=== PATIENT | female | born 1970 | race Two or more races ===

== ENCOUNTER → 2024-04-11 | Outpatient (CLI) | payer MEDICARE, MEDICAID, SELFPAY ==
--- NOTE | 2024-04-11 15:30 | XR_ITS ---
Examination: Thyroid sonography complete Technique: Grayscale sonographic images thyroid lobes, flow analysis Exam date and time: April 11, 2024 1534 hrs. Indications: Diagnosis Spencer's thyroiditis Findings: Right thyroid 4.7 cm no solid nodules Left thyroid 4.0 cm no solid nodules Heterogeneous echogenicity throughout the thyroid lobes Impression: Negative for thyroid nodules, consider correlation with oral I-123 thyroid uptake and scan
== END | disposition home or self-care (01) ==
LOC: CDIM 15:16
PROVIDERS: PCP Registered Nurse Community Health; Referring Provider Internal Medicine Endocrinology, Diabetes & Metabolism; Visit Provider Internal Medicine Endocrinology, Diabetes & Metabolism
DX: E07.9 Disorder of thyroid, unspecified (principal)
CPT/HCPCS: 76536

== ENCOUNTER → 2024-05-03 | Outpatient (CLI) | payer MEDICARE, MEDICAID, SELFPAY ==
--- NOTE | 2024-05-03 13:13 | XR_ITS ---
Examination: Upper GI series with KUB. Esophagram standard Fluoroscopy 22 spot fluoroscopic images esophagus stomach Upright PA chest single view Exam date and time: May 03, 2024 1320 hours INDICATIONS: Epigastric pain reflux 3 months FINDINGS: Sieve Maker AP supine abdomen single view, nonobstructive bowel gas pattern Upright PA chest single view normal heart size no pneumonia Patient swallowed thin barium with 22 spot fluoroscopic images of the esophagus and stomach obtained Prominent gastroesophageal reflux No stricture the gastroesophageal junction Significant mucosal thickening in the gastric antrum Duodenal bulb expands symmetrically duodenal sweep ligament of Treitz in jejunal loops unremarkable IMPRESSION: Prominent continuous gastroesophageal reflux Mucosal fold thickening the gastric antrum most consistent with antral gastritis, but clinical correlation advised
--- NOTE | 2024-05-03 14:11 | XR_ITS ---
Examination: CT abdomen with intravenous contrast CT pelvis with intravenous contrast 2-D coronal reconstructions 2-D sagittal reconstructions Date and time of exam:May 03, 2024 1519 hours Comparison April 01, 2022 INDICATIONS: Epigastric pain right lower abdominal pain pelvic pain beginning 5 months ago. CTDI: vol (mGy) 10.2 DLP: (mGycm) 584 Technique: Multiple axial sections of the abdomen and pelvis have been obtained. 64 slice high-resolution scanner used. 3 mm axial sections have been obtained, post intravenous injection 60 cc [id number] 2-D sagittal, coronal reconstructions obtained. Low dose protocols were performed. One or more of the following dose reduction techniques were used; automated exposure control, adjustment of the mA and/or KV according to patient size, use of iterative reconstruction technique. Findings: No focal liver or splenic lesions Absent gallbladder Common bile duct 8 mm No pancreatic or adrenal mass No renal or ureteral calculi Aorta normal size No bowel obstruction 6 mm fat-containing umbilical hernia Normal appendix Colonic diverticulosis, no diverticulitis Absent uterus Urinary bladder intact Moderate osteopenia IMPRESSION: Absent gallbladder No common bile duct stones noted No renal or ureteral calculi. Normal appendix Colonic diverticulosis, no diverticulitis
== END | disposition home or self-care (01) ==
PROVIDERS: PCP Registered Nurse Community Health; Referring Provider Registered Nurse Community Health; Visit Provider Registered Nurse Community Health
DX: K21.9 Gastro-esophageal reflux disease without esophagitis (principal); K31.89 Other diseases of stomach and duodenum; K57.30 Diverticulosis of large intestine without perforation or abscess without bleeding; Z90.49 Acquired absence of other specified parts of digestive tract
CPT/HCPCS: 74177; 74240; A4649; A4699; Q9967

== ENCOUNTER → 2024-07-11 | Outpatient (CLI) | payer MEDICARE, MEDICAID, SELFPAY ==
--- NOTE | 2024-07-11 11:15 | XR_ITS ---
Examination: Screening digital mammography, bilateral Computer aided detection 3-D breast Tomosynthesis, bilateral Date and time of exam: July 11, 2024 1135 hours Compared to mammograms dating to August 04, 2021 Indication: Screening Technique: Nonmagnified MLO, CC views of the breasts to been obtained, reconstructed from 3-D Tomosynthesis images. R2 computer aided detection program utilized for evaluation of suspicious masses and/or abnormal calcifications. 3-D Tomosynthesis images obtained. Findings: The breasts are heterogeneously dense, which may obscure small masses Benign calcifications No interval suspicious masses Impression: BI-RADS category II: Benign Findings. Recommend 1 year follow-up mammogram.
== END | disposition home or self-care (01) ==
LOC: CDIM 11:24
PROVIDERS: Referring Provider Registered Nurse Community Health; Visit Provider Registered Nurse Community Health
DX: Z12.31 Encounter for screening mammogram for malignant neoplasm of breast (principal); R92.323 Mammographic fibroglandular density, bilateral breasts; R92.1 Mammographic calcification found on diagnostic imaging of breast
CPT/HCPCS: 77063; 77067

== ENCOUNTER 2024-09-30 20:06 | Emergency (ER) | payer MEDICARE, MEDICAID, SELFPAY ==
[2024-09-30 20:09] VITALS: BP 117/77; PULSE 92; RESP 18; TEMP 37; O2SAT 96; BMI 29.8
--- NOTE | 2024-09-30 21:20 | XR_ITS ---
Examination: CT abdomen and pelvis without contrast. Coronal 3-D reconstructions. Sagittal 2-D reconstructions. Date and time of exam:September 30, 2024 2151 hours Comparison May 03, 2024 INDICATIONS: Epigastric pain beginning several days ago CTDI: vol (mGy): 10.7 DLP: (mGycm): 576 Technique: Axial images of the abdomen have been obtained, 3 mm slice thickness Intravenous contrast material has not been administered. Low dose protocols were performed. One or more of the following dose reduction techniques were used; automated exposure control, adjustment of the mA and/or KV according to patient size, use of iterative reconstruction technique. Findings: No focal liver or splenic lesion Absent gallbladder No pancreatic or adrenal mass No renal or ureteral calculi, no hydronephrosis Aorta normal size Normal appendix No bowel obstruction No diverticulitis Contracted urinary bladder Absent uterus Moderate osteopenia Moderate narrowing hip joints IMPRESSION: No renal or ureteral calculi, hydronephrosis Normal appendix No bowel obstruction diverticulitis or free air
[2024-09-30 23:12] LABS: Collection Type, Urine Clean Catch
[2024-09-30 23:21] LABS: Bacteria,Urine Rare; Bilirubin,Urine Negative (Negative); Blood,Urine Negative (Negative); Calcium Oxalate Crystals,Urine 2+; Clarity,Urine Turbid (Clear/Hazy); Color,Urine Yellow (Lt Yel-Yel); Glucose, Urine Negative (Negative); Ketones,Urine Negative (Negative); Leukocyte Esterase,Urine Negative (Negative); Nitrite,Urine Negative (Negative); PH,Urine 6.0 (5.0-7.0); Protein,Urine 1+ (Neg - Trace); RBC,Urine 1 /hpf (0-3); Specific Gravity,Urine 1.033 (1.001-1.035); Squamous Epithelial Cell,Urine 10 /hpf (0-5); Urobilinogen,Urine Negative mg/dL (0.0-1.0); WBC,Urine 5 /hpf (0-5)
[2024-09-30 23:22] LABS: HCG Qualitative,Urine Negative
[2024-10-01 00:03] LABS: Basophils # (Auto) 0.0 Thou/mm3 (0.0-0.2); Basophils % (Auto) 0 % (0-2.5); Eosinophils # (Auto) 0.1 Thou/mm3 (0.0-0.5); Eosinophils % (Auto) 1 % (0-10); Hematocrit 40.1 % (36.0-46.0); Hemoglobin 12.6 g/dL (12.0-16.0); Immature Granulocytes Auto 0.07 Thou/mm3 (0.00-0.00); Lymphocytes # (Auto) 3.3 Thou/mm3 (1.0-4.8); Lymphocytes % (Auto) 24 % (10-50); Mean Corpuscular HGB Conc 31.4 g/dl (31.0-37.0); Mean Corpuscular Hemoglobin 28.8 pg (25.0-35.0); Mean Corpuscular Volume 92 fL (80-100); Monocytes # (Auto) 0.9 Thou/mm3 (0.0-0.8); Monocytes % (Auto) 7 % (0-12); Neutrophils # (Auto) 9.4 Thou/mm3 (1.8-7.7); Neutrophils % (Auto) 68 % (37-80); Nucleated Red Blood Cell # 0.00 Thou/mm3 (0.00-0.00); Nucleated Red Blood Cell % 0 /100 WBC (0); Platelet Count 403 Thou/mm3 (140-440); RDW Standard Deviation 46.5 fL (36.4-46.3); Red Blood Count 4.38 Miln/mm3 (4.00-5.20); White Blood Count 13.9 Thou/mm3 (3.6-11.0)
[2024-10-01 00:35] LABS: Alanine Aminotransferase < 7 U/L (10-49); Albumin, Serum 4.4 gm/dL (3.5-5.0); Albumin/Globulin Ratio 1.6 (1.2-2.2); Alkaline Phosphatase 132 U/L (46-116); Anion Gap 11 (7-16); Aspartate Amino Transferase 13 U/L (0-34); BUN/Creatinine Ratio 28 Ratio (12-20); Bilirubin,Total 0.3 mg/dL (0.3-1.2); Blood Urea Nitrogen 17 mg/dL (9-23); Calcium 10.0 mg/dL (8.3-10.6); Calcium (Corrected) 10.0 mg/dL (8.5-10.1); Carbon Dioxide 26.3 mMol/L (20.0-31.0); Chloride 108 mMol/L (98-107); Creatinine (Component) 0.6 mg/dL (0.6-1.3); Estimated Creatinine Clearance 97.0 mL/min (>60); Globulin 2.7 gm/dL (2.3-3.5); Glucose 99 mg/dL (74-106); Lipase 39 U/L (12-53); Osmolality,Calculated 290 (275-295); Potassium 3.5 mMol/L (3.4-5.1); Sodium 145 mMol/L (136-145); Total Protein 7.1 gm/dL (5.7-8.2); eGFR > 60 See Note
[2024-10-01 01:17] VITALS: BP 114/79; PULSE 78; RESP 18; TEMP 36.6; O2SAT 96
--- NOTE | 2024-10-01 01:24 | PD.EDABDPN ---
ED Abdominal Pain RME/HPI General Chief Complaint: Abdominal Pain Stated complaint: EPIGASTRIC AREA PAIN Time seen by provider: 09/30/24 20:21 Arrival date/time: 09/30/24 20:06 This is a case of 54-year-old female with history of his hysterectomy cholecystectomy and hiatal hernia came in in the emergency room due to epigastric pain on and off for 2 days associated with nausea vomiting patient was regularly seen by the children's literature professor for her hiatal hernia patient denies any chest pain and shortness of breath denies any constipation diarrhea or blood in stool Limitations: no limitations Related Data Home Medications ?Medication ?Instructions ?Recorded ?Confirmed Levothyroxine * (SYNTHROID *) 88 mcg PO QDAY #0 tabs 06/11/13 12/26/17 clonazepam 1 mg tablet (Klonopin) 1 mg PO BID #0 tabs 06/21/16 12/26/17 ciprofloxacin HCl 500 mg tablet 1 tab PO BID 12/26/17 12/26/17 (Cipro) Previous Rx's ?Medication ?Instructions ?Recorded cyclobenzaprine 10 mg tablet 10 mg PO TID PRN muscle spasm #30 12/26/17 tabs hydrocodone 5 mg-acetaminophen 325 1 tab PO QID PRN pain #14 tabs 12/26/17 mg tablet (Bidwell) ibuprofen 600 mg tablet 600 mg PO Q8H PRN fever or pain 12/26/17 #30 tabs acetaminophen 325 mg capsule 975 mg (3 x 325 mg) PO Q6H PRN 09/05/19 pain #30 caps azithromycin 250 mg tablet See Rx Instructions PO .COMPLEX #6 12/01/20 (Zithromax) tabs meloxicam 7.5 mg tablet 7.5 mg PO QDAY #10 tabs 07/14/21 albuterol sulfate 90 mcg/actuation 2 inh inhalation Q6H PRN shortness 05/09/23 breath activated powder inhaler of breath or wheezing #1 ea azithromycin 250 mg tablet See Rx Instructions PO .COMPLEX #6 05/09/23 (Zithromax Z-Kris) tabs ibuprofen 800 mg tablet (IBU) 800 mg PO Q8H #20 tabs 05/11/23 promethazine-DM 6.25 mg-15 mg/5 mL 5 ml PO Q6H PRN cough #118 mL 03/28/24 oral syrup benzonatate 100 mg capsule 100 mg PO BID PRN cough #20 caps 05/14/23 famotidine 20 mg tablet 20 mg PO BID 30 days #60 tabs 10/01/24 omeprazole 20 mg capsule,delayed 20 mg PO QDAY 30 days #30 caps 10/01/24 release ondansetron 4 mg disintegrating 4 mg PO Q8H PRN nausea and 10/01/24 tablet vomiting #20 tabs Allergies Allergy/AdvReac Type Severity Reaction Status Date / Time No Known Allergies Allergy Verified 09/30/24 20:15 Review of Systems Review of Systems Systems Reviewed: All systems reviewed, normal except as documented Constitutional Constitutional: Reports system reviewed and no additional complaints, except as documented, Denies chills and Denies fever(s) Cardiovascular Cardiovascular: Reports system reviewed and no additional complaints, except as documented, Reports as per HPI, Denies chest pain, Denies dyspnea and Denies dyspnea on exertion Respiratory Respiratory: Reports system reviewed and no additional complaints, except as documented, Reports as per HPI, Denies cough, Denies dyspnea and Denies dyspnea on exertion Gastrointestinal Gastrointestinal: Reports system reviewed and no additional complaints, except as documented, Reports as per HPI, Reports abdominal pain, Reports nausea and Reports vomiting Genitourinary Genitourinary: Reports system reviewed and no additional complaints, except as documented and Reports as per HPI Musculoskeletal Musculoskeletal: Reports system reviewed and no additional complaints, except as documented and Reports as per HPI Neurologic Neurologic: Reports system reviewed and no additional complaints, except as documented Past Medical History Past Medical History CARDIAC: Negative Congestive Heart Failure RESPIRATORY: Negative Chronic Obstructive Pulmonary Disease (COPD) GENITOURINARY: Negative Renal Disease ENDOCRINE: Positive Endocrine Disorders; Negative Diabetes Mellitus Type 1 or Diabetes Mellitus Type 2 PSYCHO/SOCIAL: Positive Anxiety Family History FAMILY HISTORY: Negative Family Psychiatric Problems Surgical History SURGICAL: Positive Hysterectomy Social History SMOKING STATUS: Never smoker OCCUPATION: Disability ED Exam General Limitations: Present no limitations General appearance: Present alert, in no apparent distress and other (Patient is awake alert oriented not in distress nontoxic looking well-hydrated well-nourished) Head Head exam: Present atraumatic, normocephalic and normal inspection Eye Eye exam: Present normal appearance, PERRL and EOMI ENT ENT exam: Present normal exam, normal oropharynx and mucous membranes moist Neck Neck exam: Present normal inspection, full ROM and trachea midline; Absent tenderness Chest Chest inspection: Present normal inspection and symmetric chest wall rise; Absent tenderness Respiratory Respiratory exam: Present normal lung sounds bilaterally; Absent respiratory distress, wheezes, stridor, accessory muscle use or prolonged expiratory phase Cardiovascular Cardiovascular exam: Present regular rate, normal rhythm and normal heart sounds; Absent bradycardia, tachycardia, irregular rhythm, systolic murmur or diastolic murmur Abdominal Exam Abdominal exam: Present soft, tenderness (Mild tenderness in epigastric area) and normal bowel sounds; Absent distention, guarding, rebound, rigidity, diminished bowel sounds, hyperactive bowel sounds, hypoactive bowel sounds, organomegaly, trauma, psoas sign, obturator sign, Sanchez's sign, Rovsing's sign, tenderness at McBurney's Point or hernia Abdominal tenderness: Present epigastrium and mild Extremities Exam Extremities exam: Present normal inspection and full ROM Back Exam Back exam: Present normal inspection and full ROM Neurological Exam Neurological exam: Present alert, oriented X3, CN II-XII intact, normal gait and reflexes normal; Absent motor sensory deficit Psychiatric Psychiatric exam: Present normal affect and normal mood Skin Skin exam: Present warm, dry, intact and normal color Course Quality Measures none Orders Category Date Time Status CT abdomen pelvis wo con Stat Exams 09/30/24 21:20 Completed CBC Stat Lab 09/30/24 23:38 Completed Comprehensive Metabolic Panel Stat Lab 09/30/24 23:38 Completed HCG Qualitative,Urine Stat Lab 09/30/24 22:50 Completed Lipase Stat Lab 09/30/24 23:38 Completed Urinalysis Stat Lab 09/30/24 22:50 Completed Famotidine [Pepcid] Med 10/01/24 01:15 Discontinued 40 mg PO X1 ONE Lidocaine 2% Viscous [Xylocaine 2% Viscous] Med 10/01/24 01:15 Discontinued 15 ml PO X1 ONE Ondansetron Odt [Zofran Odt] Med 10/01/24 01:15 Discontinued 4 mg PO X1 ONE mg Hyd/Al Hyd/Hilary Susp [Maalox Susp] Med 10/01/24 01:15 Discontinued 30 ml PO X1 ONE Vital Signs Vital signs: Vital Signs Temperature 98.6 F 09/30/24 20:09 Pulse Rate 92 09/30/24 20:09 Respiratory Rate 18 09/30/24 20:09 Blood Pressure 117/77 09/30/24 20:09 Pulse Oximetry (%) 96 09/30/24 20:09 Oxygen Delivery Method Room Air 09/30/24 20:09 Patient is afebrile not tachycardic not tachypneic BP stable not hypoxic oxygen saturation is 96% in room air Abdominal Pain MDM MDM Narrative MDM Narrative:: This is a case of 54-year-old female with history of his hysterectomy cholecystectomy and hiatal hernia came in in the emergency room due to epigastric pain on and off for 2 days associated with nausea vomiting patient was regularly seen by the children's literature professor for her hiatal hernia patient denies any chest pain and shortness of breath denies any constipation diarrhea or blood in stool physical examination patient is awake alert oriented not in distress nontoxic looking well-hydrated well-nourished abdominal exam is benign nonsurgical no guarding no rebound no rigidity mild tenderness in the epigastric area negative psoas negative obturator negative Rovsing's negative McBurney's negative Sanchez sign negative CVA tenderness patient blood test showed leukocytosis at 13,000 no anemia kidney and liver function is normal no electrolyte imbalance urinalysis is normal CT scan is also normal and unremarkable patient was given Zofran and GI cocktail which patient condition markedly improved and resolved patient was advised to follow-up with PCP and to see her children's literature professor for further evaluation and treatment of possible gastritis and to follow-up with her hiatal hernia for any recurrent persistent worsening symptoms return to the emergency room immediately or call 911 take her medication as directed patient was prescribed Pepcid and omeprazole and Zofran for vomiting modified diet is advised Patient was discharged with comfortable condition walking with stable gait. Patient verbalized no further complains explained diagnosis and answered patient question. Patient is comfortable with the proposed management plan including the need to follow up with his/her primary care physician and any specialist if applicable Discussed patient for any urgent condition or worsening sx, He/She needed to go to emergency room immediately or call 911. Patient acknowledge the responsibility to follow up as instructed and to monitor her/his symptoms. For any persistence of the symptoms for more than 3-5 days return precaution advised. Discussed the result of the test and was given printed discharge instruction Patient data External records reviewed:: [facility] previous records Clinical information provided by:: patient Social determinants that could affect healthcare access:: none Patient has the following chronic illnesses:: None How is presenting disease/condition affected by chronic disease/condition?: no chronic disease Evaluation data The following diagnostics were reviewed and interpreted by me:: lab results and radiology exam(s) Lab and/or radiology exams considered but not ordered:: Reviewed Interpretation Summary: Reviewed Medications / Prescriptions Medications or Prescriptions considered but not ordered:: Given Medication administrations:: Medication Administration History Discontinued Medications Al Hydrox/Mg Hydrox/Simethicone (Mg Hyd/Al Hyd/Hilary (Maalox Reg) Susp 30 Ml Udc) 30 ml PO X1 ONE Stop: 10/01/24 01:16 Famotidine (Famotidine 20 Mg Tablet) 40 mg PO X1 ONE Stop: 10/01/24 01:16 Lidocaine HCl (Lidocaine Viscous 2% 15 Ml Udc) 15 ml PO X1 ONE Stop: 10/01/24 01:16 Ondansetron HCl (Ondansetron Odt 4 Mg Tabrap) 4 mg PO X1 ONE; Protocol Stop: 10/01/24 01:16 Given Consultations Consultation(s) initiated? (list below): No Diagnosis Differential diagnosis abdominal pain: abdominal pain, acute appendicitis, calculus of kidney, diverticulitis, gastroenteritis and other (Gastritis) Most likely diagnosis given after review of the tests above:: Gastritis Admission Indicated Admission indicated?: not indicated Explain why admission is indicated or not indicated:: Not indicated Admission Request Was there a request for admission?: No Admission Attestation Admission request attestation: Not indicated Disposition Plan Disposition Plan: Discharge Discharge Attestation Discharge Attestation: The patient and all family members were given an opportunity to ask questions and understood the discharge instructions. Discharge instructions specifically effects, indications for sooner follow up or return to the emergency department, and the expected course of current diagnosis. Patient condition: Stable Discharge Plan Plan Patient Disposition: HOME (Self Care) Patient condition on transfer: Stable Prescriptions/Referrals Prescriptions/Med Rec: New famotidine 20 mg tablet 20 mg PO BID 30 Days Qty: 60 0RF omeprazole 20 mg capsule,delayed release(DR/EC) 20 mg PO QDAY 30 Days Qty: 30 0RF ondansetron 4 mg tablet,disintegrating 4 mg PO Q8H PRN (Reason: nausea and vomiting) Qty: 20 0RF No Action Levothyroxine * (SYNTHROID *) 88 MCG tablet 88 mcg PO QDAY Qty: 0 clonazepam [Klonopin] 1 MG tablet 1 mg PO BID Qty: 0 ciprofloxacin HCl [Cipro] 500 mg Tablet 1 tab PO BID cyclobenzaprine 10 mg tablet 10 mg PO TID PRN (Reason: muscle spasm) Qty: 30 0RF hydrocodone-acetaminophen [Bidwell] 5-325 mg tablet 1 tab PO QID MDD 3 tabs PRN (Reason: pain) Qty: 14 0RF ibuprofen 600 mg tablet 600 mg PO Q8H PRN (Reason: fever or pain) Qty: 30 0RF acetaminophen 325 mg capsule 975 mg PO Q6H PRN (Reason: pain) Qty: 30 0RF meloxicam 7.5 mg tablet 7.5 mg PO QDAY Qty: 10 0RF azithromycin [Zithromax] 250 mg tablet See Rx Instructions .ROUTE .COMPLEX Qty: 6 0RF Rx Instructions: take 500 mg today (day 1), then 250 mg for 4 days (days 2-5) azithromycin [Zithromax Z-Kris] 250 mg tablet See Rx Instructions .ROUTE .COMPLEX Qty: 6 0RF Rx Instructions: For 250 mg dose pack: take 500 mg today (day 1), then 250 mg for 4 days (days 2-5) albuterol sulfate 90 mcg/actuation aerosol powdr breath activated 2 inh inhalation Q6H PRN (Reason: shortness of breath or wheezing) Qty: 1 0RF promethazine-DM 6.25-15 mg/5 mL syrup 5 ml PO Q6H PRN (Reason: cough) Qty: 118 0RF ibuprofen [IBU] 800 mg tablet 800 mg PO Q8H Qty: 20 0RF benzonatate 100 mg capsule 100 mg PO BID PRN (Reason: cough) Qty: 20 0RF Referrals: Jane Lopez FNP [Primary Care Provider] - In 1 week Problem List Clinical Impression: Abdominal pain, Hiatal hernia, Gastritis Patient/Caregiver Discharge Instructions Education Materials: Abdominal Pain, ED Gastritis (Adult), ED Hiatal Hernia Additional Instructions: Follow-up with your primary care physician in 2 days for reevaluation and to be referred to children's literature professor for further evaluation and treatment of your gastritis and hiatal hernia recurrence persistent worsening symptoms or any emergent concern call 911 or go to the nearest emergency room take your medication at as directed avoid skipping of meals avoid high cholesterol food fat fried food dairy food avoid spicy food avoid alcohol soda or coffee Print Language: Polish Stand Alone Forms: Noni Award Info., Patient Portal Info Letter PA/RETAIL CUSTODIAL ASSOCIATE Supervising Physician PA/RETAIL CUSTODIAL ASSOCIATE Supervising Physician: dr garcia
[2024-10-01] MEDS: LIDOCAINE VISCOUS 2% 15 ML UDC PO (01:43)
[2024-10-01] MEDS: ONDANSETRON ODT 4 MG TABRAP PO (01:43)
[2024-10-01] MEDS: MG HYD/AL HYD/SIME (Maalox Reg) SUSP 30 ML UDC PO (01:43)
[2024-10-01] MEDS: FAMOTIDINE 20 MG TABLET 40 MG PO (01:43)
== END 2024-10-01 01:48 | disposition home or self-care (01) ==
PROVIDERS: Nurse Practitioner Family; Emergency Provider Emergency Medicine; PCP Registered Nurse Community Health
DX: K29.70 Gastritis, unspecified, without bleeding (principal); K44.9 Diaphragmatic hernia without obstruction or gangrene
CPT/HCPCS: 36415; 74176; 80053; 81001; 81025; 83690; 85025; 99283; J3490; Q0162; A9270

== ENCOUNTER → 2024-10-02 | Outpatient (CLI) | payer MEDICARE, MEDICAID, SELFPAY ==
--- NOTE | 2024-10-02 14:15 | XR_ITS ---
Examination: MRI of brain without intravenous contrast. MRI brain with intravenous contrast. Date and time of exam:October 02, 2024 1513 hours INDICATIONS: Increasing memory loss beginning one year ago Technique: Multiple axial and sagittal images of the brain to been obtained. Siemens high-resolution 1.52 Kellen short bore scanner utilized. Sagittal sections, T1 weighted images, TR 500, TE 14, are performed. Axial sections proton-density and T2-weighted images have been obtained. Inversion recovery axial images, TR 9260, TE 111, TR 2500. Diffusion weighted images, axial sections, TR 4800, TE 128, B value 1000. Axial sections, ADC map, TR 4800, TE 128. Axial and coronal images were also obtained post 14 cc gadolinium administered intravenously. Findings:: Enlargement of the sella turcica is not present. The optic chiasm and infundibular stalk are not remarkable. There is no localized enlargement of the medulla or erick. Fourth ventricle and cerebellar tonsils appear normal in position. No subacute area of hemorrhage density is seen. Fourth ventricle is midline. Mass in the cerebellopontine angle region is not evident. 7th and 8th nerve complexes exhibit symmetry Globes are symmetrical Orbital musculature including medial lateral rectus muscles do not exhibit abnormality Increased white matter signal is not seen Effacement of the cortical sulcal markings is not identified. Mass effect upon the ventricular system is not identified. Diffusion-weighted images demonstrate no focus of restricted diffusion Contrast images demonstrate no abnormal enhancement Impression: Negative for acute hemorrhage mass effect or midline shift No acute infarct No MR findings diagnostic for demyelinating disease No abnormal enhancing lesions
== END | disposition home or self-care (01) ==
LOC: SMRI 13:04
PROVIDERS: PCP Registered Nurse Community Health; Referring Provider Psychiatry & Neurology Neurology; Visit Provider Psychiatry & Neurology Neurology
DX: R41.3 Other amnesia (principal)
CPT/HCPCS: 70553; A9577